=== PATIENT | male | born 2000 | race Caucasian/White ===

== ENCOUNTER 2022-08-18 16:03 | Emergency (ER) | payer OTHER ==
[~2022-08-18] VITALS: Ht 180.3 cm; Wt 80.3 kg
[2022-08-18] MEDS ORDERED: CEPHALEXIN MONOHYDRATE 250 MG CAP ONE (16:42)
[2022-08-18] MEDS ORDERED: KEFLEX125 MG/5 M PO (17:05)
== END 2022-08-18 17:08 | disposition home or self-care (01) ==
LOC: FSED 16:08
DX: S01.412A Laceration without foreign body of left cheek and temporomandibular area, initial encounter (principal); W20.8XXA Other cause of strike by thrown, projected or falling object, initial encounter; Y99.0 Civilian activity done for income or pay
CPT/HCPCS: 99283